=== PATIENT | female | born 1990 | race Caucasian/White ===

== ENCOUNTER 2017-05-29 17:41 | Emergency (ER) | payer MEDICAID ==
[2017-05-29] MEDS: ONDANSETRON 4 MG INJ IV (20:10)
[2017-05-29] MEDS: SOD CHLORIDE 0.9% 1,000 ML IV (20:10)
[2017-05-29] MEDS: FAMOTIDINE 20 MG INJ IV (20:10)
[2017-05-29 20:23] LABS: ADD MAN DIFF? NO
[2017-05-29 20:27] LABS: BASOPHIL # 0.1 10^3/ul (0.0-0.1); BASOPHILS % 0.6 % (0.0-2.0); EOSINOPHILS # 0.1 10^3/ul (0.0-0.5); EOSINOPHILS % 0.3 % (0.0-7.0); HEMATOCRIT 41.8 % (37.0-47.0); HEMOGLOBIN 13.7 g/dl (12.0-16.0); LYMPHOCYTES # 2.2 10^3/ul (0.8-2.9); MEAN CORPUSCULAR HEMOGLOBIN 29.9 pg (29.0-33.0); MEAN CORPUSCULAR HGB CONC 32.8 g/dl (32.0-37.0); MEAN CORPUSCULAR VOLUME 91.3 fl (82.0-101.0); MEAN PLATELET VOLUME 11.2 fl (7.4-10.4); MONOCYTE # 1.1 10^3/ul (0.3-0.9); MONOCYTES % 5.5 % (0.0-11.0); NEUTROPHIL # 16.2 10^3/ul (1.6-7.5); NEUTROPHILS % 82.2 % (39.0-77.0); PLATELET COUNT 275 10^3/UL (140-415); RED BLOOD COUNT 4.58 10^6/ul (4.20-5.40); RED CELL DISTRIBUTION WIDTH 12.4 % (11.5-14.5)
[2017-05-29 20:27] LABS: WHITE BLOOD COUNT 19.7 10^3/ul (4.8-10.8)
[2017-05-29 20:29] LABS: ADD UMIC YES; UR ASCORBIC ACID NEGATIVE (NEGATIVE); UR BILIRUBIN (Dip) NEGATIVE (NEGATIVE); UR BLOOD (Dip) 1+ mg/dL (NEGATIVE); UR CLARITY SLIGHTLY CLOUDY (CLEAR); UR COLOR YELLOW (YELLOW); UR GLUCOSE (Dip) NEGATIVE (NEGATIVE); UR KETONES (Dip) 1+ mg/dL (NEGATIVE); UR LEUKOCYTE ESTERASE (Dip) TRACE Leu/ul (NEGATIVE); UR MUCUS MODERATE /HPF (NONE SEEN); UR NITRITE (Dip) NEGATIVE (NEGATIVE); UR RBC 2 /HPF (0-5); UR SPECIFIC GRAVITY (Dip) 1.027 (1.003-1.030); UR SQUAMOUS EPITHELIAL CELL FEW /HPF (FEW); UR TOTAL PROTEIN (Dip) NEGATIVE (NEGATIVE); UR UROBILINOGEN (Dip) NEGATIVE (NEGATIVE); UR WBC 2 /HPF (0-5)
[2017-05-29 20:44] LABS: ALANINE AMINOTRANSFERASE 45 IU/L (13-69); ALBUMIN 4.7 g/dl (3.3-4.9); ALBUMIN/GLOBULIN RATIO 1.14; ALKALINE PHOSPHATASE 88 IU/L (42-121); ANION GAP 16 (8-16); ASPARTATE AMINO TRANSFERASE 29 IU/L (15-46); BILIRUBIN,INDIRECT 0.1 mg/dl (0-1.1); BILIRUBIN,TOTAL 0.1 mg/dl (0.2-1.3); BLOOD UREA NITROGEN 13 mg/dl (7-20); CALCIUM 10.3 mg/dl (8.4-10.2); CARBON DIOXIDE 24 mmol/L (21-31); CHLORIDE 105 mmol/L (97-110); CREATININE 0.63 mg/dl (0.44-1.00); GLUCOSE 106 mg/dl (70-220); LIPASE 40 U/L (23-300); SODIUM 141 mmol/L (135-144); TOTAL PROTEIN 8.8 g/dl (6.1-8.1)
== END 2017-05-29 21:56 | disposition home or self-care (01) ==
LOC: FTE 17:41
DX: K80.20 Calculus of gallbladder without cholecystitis without obstruction (principal); K52.9 Noninfective gastroenteritis and colitis, unspecified
CPT/HCPCS: 36415; 76705; 80053; 81001; 83690; 85025; 96374; 96375; 99285-25